=== PATIENT | male | born 1965 | race Caucasian/White ===

== ENCOUNTER → 2023-12-27 | Outpatient (REF) | payer OTHER ==
[2023-12-27 17:36] LABS: HEMOGLOBIN A1c 5.1 % (4.0-6.0)
[2023-12-27 17:42] LABS: ALBUMIN 4.2 G/DL (3.2-5.2); ALKALINE PHOSPHATASE 42 U/L (46-116); ALT/SGPT 32 U/L (7.0-40); AST/SGOT 29 U/L (<34); BILIRUBIN,TOTAL 0.4 MG/DL (0.3-1.2); BLOOD UREA NITROGEN 11 MG/DL (9-23); CALCIUM LEVEL 9.8 MG/DL (8.5-10.1); CARBON DIOXIDE LEVEL 32 MMOL/L (20-31); CHLORIDE LEVEL 101 MMOL/L (98-107); CHOLESTEROL LEVEL 177 MG/DL (<200); CHOLESTEROL RISK RATIO 3.05 (<5); CREATININE FOR GFR 0.82 MG/DL (0.70-1.30); GLOMERULAR FILTRATION RATE > 60.0 (>56); GLUCOSE, FASTING 87 MG/DL (60-100); LDL CHOLESTEROL 72.4 MG/DL (<100); POTASSIUM SERUM 5.3 MMOL/L (3.5-5.1); PSA SCREENING 1.14 NG/ML (< 4.00); SODIUM LEVEL 135 MMOL/L (136-145); TOTAL PROTEIN 7.5 G/DL (5.7-8.2); TRIGLYCERIDES LEVEL 233 MG/DL (<150)
== END ==
LOC: M SFHCCLAY 09:13
PROVIDERS: ATTEND Physician Assistant
DX: I10 Essential (primary) hypertension (principal); E78.5 Hyperlipidemia, unspecified; Z12.5 Encounter for screening for malignant neoplasm of prostate
CPT/HCPCS: 80053; 80061; 83036; G0103

== ENCOUNTER → 2023-12-31 | Outpatient (REF) | payer OTHER ==
[2023-12-31 19:52] LABS: ALKALINE PHOSPHATASE 52 U/L (40-129); ALT/SGPT 24 U/L (7.0-40); AST/SGOT 20 U/L (<34); BILIRUBIN,TOTAL 0.6 MG/DL (0.3-1.2); BLOOD UREA NITROGEN 14 MG/DL (9-23); CALCIUM LEVEL 9.8 MG/DL (8.5-10.1); CARBON DIOXIDE LEVEL 32 MMOL/L (20-31); CHLORIDE LEVEL 98 MMOL/L (98-107); CREATININE FOR GFR 1.03 MG/DL (0.70-1.30); GLOMERULAR FILTRATION RATE > 60.0 (>56); GLUCOSE, FASTING 92 MG/DL (60-100); SODIUM LEVEL 135 MMOL/L (136-145)
== END ==
LOC: M SFHCCLAY 12:27
PROVIDERS: ATTEND Physician Assistant
DX: E87.5 Hyperkalemia (principal)